=== PATIENT | male | born 1985 | race Caucasian/White ===

== ENCOUNTER 2017-11-05 18:44 | Emergency (ER) | payer BC ==
[~2017-11-05] VITALS: Ht 177.8 cm; Wt 96.0 kg
[2017-11-05 18:45] VITALS: TEMP 36.8; Ht 177.8 cm; Wt 96.0 kg
[2017-11-05] MEDS ORDERED: ARTIFICIAL TEARS OP SOLN OP PRN (19:15)
[2017-11-05 19:19] LABS: BASO % 0.1 %; BASO ABS # 0.01 K/uL (0-0.2); EOS % 1.4 %; EOS ABS # 0.11 K/uL (0-0.5); HEMATOCRIT 43.6 % (42-52); HEMOGLOBIN 15.6 g/dL (14.0-18.0); IG# 0.02 K/uL (0.00-0.02); LYMPH % 26.2 %; LYMPH ABS # 2.12 K/uL (1.2-3.4); MEAN CELL VOLUME 88.8 fL (80-100); MEAN CORPUSCULAR HEMOGLOBIN 31.8 pg (25-34); MEAN CORPUSCULAR HGB CONC 35.8 g/dl (32-36); MEAN PLATELET VOLUME 9.8 fL (7.4-10.4); MONO % 6.1 %; MONO ABS # 0.49 K/uL (0.11-0.59); NEUT ABS # 5.33 K/uL (1.4-6.5); PLATELET COUNT 333 K/uL (130-400); RED CELL DISTRIBUTION WIDTH CV 12.4 % (11.5-14.5); RED CELL DISTRIBUTION WIDTH SD 39.7 fL (36.4-46.3); WHITE BLOOD COUNT 8.08 K/uL (4.8-10.8)
[2017-11-05] MEDS ORDERED: PROPARACAINE HCL 0.5% OP SOLN 15 ML BTL OP STA (19:22)
[2017-11-05] MEDS ORDERED: ARTIFICIAL TEARS OP OINT 3.5 GM TUBE ONE (19:28)
[2017-11-05 19:40] LABS: ALBUMIN 4.4 gm/dl (3.4-5.0); CALCIUM 8.8 mg/dl (8.5-10.1); CREATININE 0.93 mg/dl (0.60-1.40); POTASSIUM 3.8 mmol/L (3.5-5.1); TOTAL PROTEIN 8.1 gm/dl (6.4-8.2)
[2017-11-05] MEDS ORDERED: NAPR1TAB9 PO (19:58)
[2017-11-05] MEDS ORDERED: SNT/10 PO (20:00)
[2017-11-05 20:25] VITALS: BP 141/82; PULSE 69; O2SAT 98
[2017-11-05] MEDS ORDERED: PRED20TA PO (20:26)
[2017-11-05] MEDS ORDERED: VLT500 PO (20:29)
--- NOTE | 2017-11-05 20:39 | EMERGENCY ROOM VISIT NOTE ---
History Report prepared by Yoni: Linda Blue Under the Supervision of: Dr. Antelmo Cervantes D.O. First contact with patient: 18:50 Chief Complaint: BELLS PALSY SYMPTOMS Stated Complaint: FACIAL DROOPING, NUMBNESS History of Present Illness The patient is a 32 year old male who presents to the Emergency Room with complaints of sudden [place] Palsy symptoms beginning last night. The patient reports that he was slurring his speech last night as the right side of his face was drooping. He notes that he also cannot close his right eye. He also admits that he cannot lift his right forehead. He states that over the last 3 days he had a cramp on the right side of his neck. He states that he noticed right-sided jaw tightness today. He denies having weakness or numbness in his arms and legs and also denies having tingling in his face. The patient reports that his most recent tick bite was last Fall. The patient denies being diagnosed with Lyme Disease before. 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 Per family, the patient has also been complaining of joint pain. The patient reports that he has insomnia but reports no other medical problems. Source of History: patient, family Onset: last night Position: head (face) Quality: other ([place] Palsy symptoms) Timing: other (sudden) Associated Symptoms: No weakness, No numbness Note: additional symptoms: slurred speech, neck cramp, jaw tightness Review of Systems See HPI for pertinent positives & negatives. A total of 10 systems reviewed and were otherwise negative. Past Medical & Surgical Medical Problems: (1) Insomnia Family History Patient reports no known family medical history. Social History Smoking Status: Former Smoker Marital Status: Housing Status: lives with significant other Occupation Status: employed Current/Historical Medications Scheduled Prednisone (Prednisone), 3 TAB PO DAILY Valacyclovir HCl (Valacyclovir HCl), 1 GM PO TID Zaleplon (Sonata), 10 MG PO HS Scheduled PRN Naproxen (Aleve), 440 MG PO DAILY PRN for Pain Allergies Coded Allergies: No Known Allergies (Unverified , 11/05/17) Physical Exam Vital Signs Date Time Temp Pulse Resp B/P (MAP) Pulse Ox O2 Delivery O2 Flow Rate FiO2 11/05/17 20:25 69 18 141/82 98 Room Air 11/05/17 18:45 36.8 65 17 135/88 98 Room Air Physical Exam GENERAL: Sitting up in bed, alert, well appearing, well nourished, no distress, non-toxic EYE EXAM: normal conjunctiva. PERRL and EOM's intact. OROPHARYNX: no exudate, no erythema, lips, buccal mucosa, and tongue normal and mucous membranes are moist NECK: supple, no nuchal rigidity, no adenopathy, non-tender LUNGS: Clear to auscultation. Normal chest wall mechanics HEART: no murmurs, S1 normal and S2 normal ABDOMEN: abdomen soft, non-tender, normo-active bowel sounds, no masses, no rebound or guarding. BACK: Back is symmetrical on inspection and there is no deformity, no midline tenderness, no CVA tenderness. SKIN: no rashes and no bruising UPPER EXTREMITIES: upper extremities are grossly normal. LOWER EXTREMITIES: No pitting edema. NEURO EXAM: Normal sensorium, normal speech, no weakness of arms, no weakness of legs. No drift. Finger to nose intact. Gross sensation intact. Unable to raise right eyebrow. Unable to close right eye. Right sided facial droop. Medical Decision & Procedures Laboratory Results 11/05/17 18:55 Red Blood Count 4.91, Mean Corpuscular Volume 88.8, Mean Corpuscular Hemoglobin 31.8, Mean Corpuscular Hemoglobin Concent 35.8, Mean Platelet Volume 9.8, Neutrophils (%) (Auto) 66.0, Lymphocytes (%) (Auto) 26.2, Monocytes (%) (Auto) 6.1, Eosinophils (%) (Auto) 1.4, Basophils (%) (Auto) 0.1, Neutrophils # (Auto) 5.33, Lymphocytes # (Auto) 2.12, Monocytes # (Auto) 0.49, Eosinophils # (Auto) 0.11, Basophils # (Auto) 0.01 11/05/17 18:55 Test 11/05/17 18:55 White Blood Count 8.08 K/uL (4.8-10.8) Red Blood Count 4.91 M/uL (4.7-6.1) Hemoglobin 15.6 g/dL (14.0-18.0) Hematocrit 43.6 % (42-52) Mean Corpuscular Volume 88.8 fL (80-100) Mean Corpuscular Hemoglobin 31.8 pg (25-34) Mean Corpuscular Hemoglobin Concent 35.8 g/dl (32-36) Platelet Count 333 K/uL (130-400) Mean Platelet Volume 9.8 fL (7.4-10.4) Neutrophils (%) (Auto) 66.0 % Lymphocytes (%) (Auto) 26.2 % Monocytes (%) (Auto) 6.1 % Eosinophils (%) (Auto) 1.4 % Basophils (%) (Auto) 0.1 % Neutrophils # (Auto) 5.33 K/uL (1.4-6.5) Lymphocytes # (Auto) 2.12 K/uL (1.2-3.4) Monocytes # (Auto) 0.49 K/uL (0.11-0.59) Eosinophils # (Auto) 0.11 K/uL (0-0.5) Basophils # (Auto) 0.01 K/uL (0-0.2) RDW Standard Deviation 39.7 fL (36.4-46.3) RDW Coefficient of Variation 12.4 % (11.5-14.5) Immature Granulocyte % (Auto) 0.2 % Immature Granulocyte # (Auto) 0.02 K/uL (0.00-0.02) Anion Gap 6.0 mmol/L (3-11) Est Creatinine Clear Calc Drug Dose 133.8 ml/min Estimated GFR () 126.3 Estimated GFR (Non- 109.0 BUN/Creatinine Ratio 15.7 (10-20) Calcium Level 8.8 mg/dl (8.5-10.1) Total Bilirubin 0.4 mg/dl (0.2-1) Direct Bilirubin 0.1 mg/dl (0-0.2) Aspartate Amino Transf (AST/SGOT) 22 U/L (15-37) Alanine Aminotransferase (ALT/SGPT) 67 U/L (12-78) Alkaline Phosphatase 68 U/L (45-117) Total Protein 8.1 gm/dl (6.4-8.2) Albumin 4.4 gm/dl (3.4-5.0) Lyme Disease IgG Antibody NEG (NEG) Lyme Disease IgM Antibody NEG (NEG) Laboratory results per my review. Medications Administered Medications (Trade) Dose Ordered Sig/Maryse Route Start Time Stop Time Status Last Admin Dose Admin Artificial Tears (Artificial Tears) 2 drops Q1H PRN OP 11/05/17 19:15 12/05/17 19:14 11/05/17 19:28 2 DROPS Proparacaine HCl (Alcaine 0.5% Oph Soln) 2 drops NOW STAT OP 11/05/17 19:22 11/05/17 19:23 DC 11/05/17 19:29 2 DROPS Artificial Tears (Lacri-Lube Oph Oint) 11 appln STK-MED ONCE .ROUTE 11/05/17 19:28 11/05/17 19:29 DC 11/05/17 19:28 11 APPLN Procedure Slit Lamp Examination Indication: [place] Palsy The right eye was prepped with topical proparacaine. Slit lamp examination was performed in the standard fashion. Cornea appeared clear. Anterior chamber deep/quiet. Scleral injection was not present. No discharge present. Fluorescein examination performed and revealed no abrasions. No foreign bodies noted. Negative [place] sign. The patient tolerated the procedure well without complication. ECG Per My Interpretation Indication: other (facial droop) Rate (beats per minute): 60 Rhythm: sinus rhythm Findings: other (normal axis, no PVCs) ED Course ED COURSE: Vital signs were reviewed and were normal. The patients medical record was reviewed The above diagnostic studies were performed and reviewed. ED treatments and interventions as stated above. 1851: The patient was evaluated in room B12B. A complete history and physical examination was performed. 1914: Ordered Artificial Tears 2 drops OP. 1921: Ordered Proparacaine HCl 2 drops OP. 1922: I reviewed the patient's case with Dr. Lowe who said to give the patient eye drops and for the patient to use ophthalmic ointment. Dr. Lowe said that the patient can follow up in the office. 1927: Ordered Artificial ears 11 appln. 1931: I performed a slit lamp exam of the patient's right eye. 2026: Ordered Prednisone 60 mg PO. 2029: Ordered Valacyclovir HCl tab 1000 mg PO. 2031: Upon reevaluation, the patient is feeling better. I discussed the findings and the treatment plan with the patient. He verbalizes agreement and understanding. He was discharged home. Medical Decision Differential Diagnosis includes but is not limited to ischemic Stroke, hemorrhagic stroke, bells palsy, mass, neoplasm, migraine headache, seizure, subarachnoid hemorrhage, TIA, and transient global amnesia. Patient is a 32-year-old male who presents to ER for right-sided facial droop. He has no other complaints. No other significant past medical history. He is unable to close his right eye, unable to lift the right side of his forehead, has a right upper facial droop. Patient is otherwise neurologically intact. Slit-lamp exam was unremarkable. Lyme was negative. Patient was given steroids and valacyclovir. He was given eyedrops, eye ointment and tape to close his eye at night. Had prolonged conversation with the patient and in regards to treatment. Discussed with ophthalmology who will follow him up. Patient will call ophthalmology tomorrow. Patient will also follow-up with PCP. Nothing to suggest that this is a stroke. CBC and BMP were unremarkable. Discussed with Pt concerning signs and symptoms to watch out for. Pt was instructed to follow up with their PCP and discussed with the patient their option to return to the ED at anytime for persistent or worsening symptoms. The appropriate anticipatory guidance and out-patient management, including indications for return to the emergency department, were explained at length to the patient and understood. Medication Reconcilliation Current Medication List: was personally reviewed by me Blood Pressure Screening Patient's blood pressure: Normal blood pressure Consults Time Called: 1899 Consulting Physician: Dr. Lowe- Ophthamology Returned Call: 1922 I reviewed the patient's case with Dr. Lowe who said to give the patient eye drops and for the patient to use ophthalmic ointment. Dr. Lowe said that the patient can follow up in the office. Impression Primary Impression: Chanel's palsy Scribe Attestation The scribe's documentation has been prepared under my direction and personally reviewed by me in its entirety. I confirm that the note above accurately reflects all work, treatment, procedures, and medical decision making performed by me. Departure Information Dispostion Home / Self-Care Prescriptions Valacyclovir HCl (Valacyclovir HCl) 500 Mg Tab 1 GM PO TID for 7 Days Prov: Antelmo Cervantes, DO 11/05/17 Prednisone (Prednisone) 20 Mg Tab 3 TAB PO DAILY for 7 Days, #21 TAB Prov: Antelmo Cervantes, DO 11/05/17 Referrals No Doctor, Assigned (PCP) Mynor, Derrek A., D.O. Forms HOME CARE DOCUMENTATION FORM, IMPORTANT VISIT INFORMATION Patient Instructions ED [place] Palsy, My [facility] Additional Instructions Please follow up with your primary care doctor in the next 24 hours. Any worsening of your symptoms, please return to the ED immediately. This includes any fevers greater than 100.4, worsening pain, chest pain, weakness or numbness in her arms or legs shortness breath, persistent nausea, vomiting, unable to eat or drink, or any other concerning signs or symptoms from your standpoint. Please apply eyedrops to right eye several times an hour to prevent it from drying out. Please use the ophthalmic ointment 4 times a day and especially prior to the night. Please tape your right eye shut at bedtime. Please take the steroids and acyclovir as prescribed. Please make sure you follow-up with ophthalmology call them first thing tomorrow morning.
== END 2017-11-05 21:04 | disposition home or self-care (01) ==
LOC: C.EDB 18:44
DX: G51.0 Bell's palsy (principal); Z79.899 Other long term (current) drug therapy; Z87.891 Personal history of nicotine dependence